=== PATIENT | male | born 1975 | race Caucasian/White ===

== ENCOUNTER 2020-05-10 20:23 | Emergency (ER) | payer OTHER ==
[~2020-05-10] VITALS: Ht 185.4 cm; Wt 80.0 kg
[2020-05-10 21:16] VITALS: BP 139/70
--- NOTE | 2020-05-10 21:17 | NUR ---
PT IN BED. GUARD AT BEDSIDE.
--- NOTE | 2020-05-10 21:36 | NUR ---
PT WALKED OUT SELF WITH STEADY GAIT. IF S&S WORSEN RETURN TO ER
== END 2020-05-10 21:37 | disposition home or self-care (01) ==
LOC: ED 21:29
DX: S16.1XXA Strain of muscle, fascia and tendon at neck level, initial encounter (principal); Z88.9 Allergy status to unspecified drugs, medicaments and biological substances; X58.XXXA Exposure to other specified factors, initial encounter; Y93.89 Activity, other specified; Y92.89 Other specified places as the place of occurrence of the external cause; Y99.8 Other external cause status
CPT/HCPCS: 99283